=== PATIENT | female | born 1985 | race Caucasian/White ===

== ENCOUNTER → 2016-10-28 | Outpatient (CLI) | payer MEDICAID ==
[~2016-10-28] MED LIST: CALC600T5 PO; FERR325C PO; IBUP-1542 PO; PREN1TAB62 PO
--- NOTE | 2016-10-28 14:35 | RADRPT ---
PROCEDURE: OB Ultrasound. CLINICAL INDICATION: Positive test. Uncertain size and dates. TECHNIQUE: Ultrasound of the pelvis was performed with transabdominal sonography in the axial and sagittal planes. COMPARISON: No prior study is available for comparison. FINDINGS: There is a single intrauterine gestational sac. pole and yolk sac are present. There is heart motion. heart rate is 176 beats per minute. [place]-rump length is 0.86 cm. Mean sac diameter is 2.22 cm. There is a small subchorionic hemorrhage. Menstrual age by ultrasound dates is 7 weeks 0 days. This indicates an expected date of delivery of 06/16/2017. The right ovary measures 3.3 x 1.6 x 2.7 cm. The left ovary is not visualized. Color Doppler and pulsed Doppler sonography demonstrate normal flow to the right ovary. There is no right ovarian enlargement or mass. There is no other pelvic mass or free fluid. IMPRESSION: 1. Single live intrauterine gestation of 7 weeks 0 days menstrual age by ultrasound dates. 2. Expected date of delivery is 06/16/2017. 3. Small subchorionic hemorrhage. RPTAT: QQ .Alfa Bishop MD, Date Time Electronically viewed and signed by .Alfa Bishop MD, on 10/28/2016 14:35 .R/
== END | disposition home or self-care (01) ==
LOC: U/S 09:08
PROVIDERS: ATTEND Psychiatry & Neurology Psychiatry
DX: O26.841 Uterine size-date discrepancy, first trimester (principal); Z3A.00 Weeks of gestation of pregnancy not specified
CPT/HCPCS: 76801

== ENCOUNTER 2016-11-08 09:50 | Emergency (ER) | payer MEDICAID ==
[~2016-11-08] VITALS: Wt 71.0 kg
--- NOTE | 2016-11-08 10:50 | ERD ---
ER Documentation Chief Complaint Date/Time DATE: 11/08/16 TIME: 10:48 Chief Complaint lower abd cramping with vag bleed since last night. no dysuria per pt HPI 31 year old female comes in with lower pelvic cramping and vaginal bleeding that started last night, patient is currently approximately 8 weeks with last menstrual period on August 28, 2016, A0. Last night she started to have heavy amount of vaginal bleeding with lower pelvic cramping that went to her back, she continues to have light spotting at this time. She denies fevers or chills or dizziness. ROS All systems reviewed and are negative except as per history of present illness. Medications Home Meds Active Scripts Ibuprofen* (Ibuprofen*) 600 Mg Tab, 600 MG PO Q6, #20 TAB 0 Refills Prov:SIMON HICKMAN MD 10/19/15 Reported Medications Calcium Carbonate (CALCIUM) 600 Mg Tablet, 600 MG PO, TAB 10/18/15 Ferrous Sulfate (Iron) 325 Mg Capsr, 325 MG PO 10/18/15 Vit-Iron Fumarate-FA ( Vitamin Tablet) 1 Each Tablet, 1 TAB PO DAILY, TAB 10/18/15 Allergies Allergies: Coded Allergies: No Known Drug Allergy (Verified Allergy, Unknown, 10/18/15) PMhx/Soc Medical and Surgical Hx: pt denies Medical Hx, pt denies Surgical Hx History of Surgery: No Anesthesia Reaction: No Hx Neurological Disorder: No Hx Respiratory Disorders: No Hx Cardiac Disorders: No Hx Psychiatric Problems: No Hx Miscellaneous Medical Probl: No Hx Alcohol Use: No Hx Substance Use: No Hx Tobacco Use: No Smoking Status: Never smoker Physical Exam Vitals Vital Signs Date Time Temp Pulse Resp B/P Pulse Ox O2 Delivery O2 Flow Rate FiO2 11/08/16 09:59 98.8 71 20 107/58 99 Physical Exam General: Well-developed, well-nourished. The patient appears in no acute distress. HEENT: Head is normocephalic, atraumatic. No scleral icterus. Neck: Supple. Nontender. Lungs: Clear to auscultation. Normal air movement. Heart: Regular rate and rhythm. S1 and S2 are normal. No murmurs, gallops, or rubs. Abdomen: Soft, nontender, nondistended. Bowel sounds are normoactive. Extremities: No clubbing or cyanosis. Normal pulses. Moving extremities x 4. No weakness. Neurologic: Alert and oriented 3. No focal deficits. Skin: Normal turgor. No rash or lesions. Result Diagram: 11/08/16 1100 Results 24 hrs PROCEDURE: OBSTETRICAL ULTRASOUND WITH ENDOVAGINAL IMAGES CLINICAL INDICATION: Vaginal Bleed () TECHNIQUE: Multiple sonographic images of the pelvis were obtained utilizing a transabdominal and endovaginal technique. The images were reviewed on a PACS workstation. COMPARISON: Obstetrical ultrasound from 10/28/2016 LMP: 08/18/2016 FINDINGS: There is a 2.6 cm posterior subserosal uterine fibroid at the level of the mid body. There is a posterior 1.4 mm intramural uterine fibroid at the level of the upper body. There is a single live intrauterine with heart rate of 167 beats per minute, yolk sac, mean sac diameter of 3.60 cm, and crown-rump length of 2.27 cm which is consistent with a gestational age of 9 weeks, 0 days . The estimated date of delivery by ultrasound is 06/13/2017 . The estimated gestational age by LMP is 11 weeks, 5 days . The estimated date of delivery by LMP is 05/25/2017 . The right ovary measures 3.8 x 2.2 x 2.7 cm. The left ovary is not visualized. There is normal vascular flow in the right ovary There is a 2.1 cm thick-walled cystic lesion with low level internal echoes in the right ovary which is likely a hemorrhagic or corpus luteal cyst. No significant pelvic free fluid is identified. IMPRESSION: Single live intrauterine consistent with a gestational age of 9 weeks , 0 days . The estimated date of delivery is 06/13/2017 . Dating by ultrasound is within 2 weeks and 5 days of dating by LMP. 2 uterine fibroids measuring up to 2.6 cm. 2.1 cm complex cystic lesion in the right ovary is likely a hemorrhagic or corpus luteal cyst. Nonvisualization of the left ovary. RPTAT: EE Physician Eva Date Time Electronically viewed and signed by Physician Eva on 11/08/2016 11:53 Laboratory Tests Test 2/6/17 10:55 11/08/16 11:00 Urine Bacteria FEW Urine Bilirubin NEGATIVE Urine Clarity CLEAR Urine Color YELLOW Urine Glucose NEGATIVE% Urine Hemoglobin TRACE Urine Ketones TRACE Urine Leukocyte Esterase NEGATIVE Urine Microscopic RBC NONE SEEN/HPF Urine Microscopic WBC 2-5/HPF Urine Nitrite NEGATIVE Urine Specific Newman >=1.030 Urine Squamous Epithelial Cells FEW Urine Total Protein NEGATIVE Urine Urobilinogen 1.0 E.U./dL Urine pH 5.5 Basophils # 0.010^3/ul Basophils % 0.4% Beta HCG, Quantitative 054279.0mIU/ml Eosinophils # 0.210^3/ul Eosinophils % 2.0% Hematocrit 38.6% Hemoglobin 13.3g/dl Lymphocytes # 2.010^3/ul Lymphocytes % 22.4% Mean Corpuscular Hemoglobin 30.8pg Mean Corpuscular Hemoglobin Concent 34.3g/dl Mean Corpuscular Volume 89.8fl Mean Platelet Volume 8.1fl Monocytes # 0.410^3/ul Monocytes % 5.0% Neutrophils # 6.110^3/ul Neutrophils % 70.2% Nucleated Red Blood Cells # 0.010^3/ul Nucleated Red Blood Cells % 0.0/100WBC Platelet Count 63369^3/UL Red Blood Count 4.3010^6/ul Red Cell Distribution Width 12.5% White Blood Count 8.810^3/ul Procedures/MDM 31-year-old female comes in with vaginal bleeding, has a single live intrauterine seen on ultrasound today. Patient differentials include creatinine, versus missed versus incomplete . No evidence of ectopic . She is type and Rh+, no indication of RhoGam. As patient is follow- up with her [employer] in the next 2-4 days for reexamination. Departure Diagnosis: Primary Impression: Vaginal bleeding Condition: Good ILANA ABDULLAHI PA-C Nov 08, 2016 10:50
[2016-11-08 11:09] LABS: ADD UMIC YES; URINE BILIRUBIN (Dip) NEGATIVE (NEGATIVE); URINE BLOOD (Dip) TRACE (NEGATIVE); URINE COLOR YELLOW (YELLOW); URINE GLUCOSE (Dip) NEGATIVE (NEGATIVE); URINE KETONES (Dip) TRACE (NEGATIVE); URINE LEUKOCYTE ESTERASE (Dip) NEGATIVE (NEGATIVE); URINE NITRITE (Dip) NEGATIVE (NEGATIVE); URINE TOTAL PROTEIN (Dip) NEGATIVE (NEGATIVE); URINE UROBILINOGEN (Dip) 1.0 E.U./dL (0.1-1.0)
[2016-11-08 11:10] LABS: BASOPHILS % 0.4 % (0.0-2.0); EOSINOPHILS # 0.2 10^3/ul (0.0-0.5); HEMATOCRIT 38.6 % (37.0-47.0); HEMOGLOBIN 13.3 g/dl (12.0-16.0); LYMPHOCYTES % 22.4 % (15.0-51.0); MEAN CORPUSCULAR HEMOGLOBIN 30.8 pg (29.0-33.0); MEAN CORPUSCULAR HGB CONC 34.3 g/dl (32.0-37.0); MEAN CORPUSCULAR VOLUME 89.8 fl (82.0-101.0); MEAN PLATELET VOLUME 8.1 fl (7.4-10.4); MONOCYTE # 0.4 10^3/ul (0.3-0.9); NEUTROPHIL # 6.1 10^3/ul (1.6-7.5); NEUTROPHILS % 70.2 % (39.0-77.0); PLATELET COUNT 350 10^3/UL (140-440); RED CELL DISTRIBUTION WIDTH 12.5 % (11.5-14.5); UNCORRECTED WBC 8.8 10^3/ul (4.8-10.8); WHITE BLOOD COUNT 8.8 10^3/ul (4.8-10.8)
[2016-11-08 11:20] LABS: CONDITION 1
--- NOTE | 2016-11-08 11:53 | RADRPT ---
PROCEDURE: OBSTETRICAL ULTRASOUND WITH ENDOVAGINAL IMAGES CLINICAL INDICATION: Vaginal Bleed () TECHNIQUE: Multiple sonographic images of the pelvis were obtained utilizing a transabdominal and endovaginal technique. The images were reviewed on a PACS workstation. COMPARISON: Obstetrical ultrasound from 10/28/2016 LMP: 08/18/2016 FINDINGS: There is a 2.6 cm posterior subserosal uterine fibroid at the level of the mid body. There is a posterior 1.4 mm intramural uterine fibroid at the level of the upper body. There is a single live intrauterine with heart rate of 167 beats per minute, yolk sa c, mean sac diameter of 3.60 cm, and crown-rump length of 2.27 cm which is consistent with a gestati onal age of 9 weeks, 0 days . The estimated date of delivery by ultrasound is 06/13/2017 . The estimated gestational age by LMP is 11 weeks, 5 days . The estimated date of delivery by LMP is 05/25/2017 . The right ovary measures 3.8 x 2.2 x 2.7 cm. The left ovary is not visualized. There is normal vascu lar flow in the right ovary There is a 2.1 cm thick-walled cystic lesion with low level internal echoes in the right ovary which is likely a hemorrhagic or corpus luteal cyst. No significant pelvic free fluid is identified. IMPRESSION: Single live intrauterine consistent with a gestational age of 9 weeks, 0 days . The estimated date of delivery is 06/13/2017 . Dating by ultrasound is within 2 weeks and 5 days of dating by LMP. 2 uterine fibroids measuring up to 2.6 cm. 2.1 cm complex cystic lesion in the right ovary is likely a hemorrhagic or corpus luteal cyst. Nonvisualization of the left ovary. RPTAT: EE Physician Eva Date Time Electronically viewed and signed by Anival Bird Physician on 11/08/2016 11:53 /
[2016-11-08 12:29] LABS: BACTERIA,URINE FEW; SQUAMOUS EPITHELIAL CELL,UR FEW; URINE RBCS NONE SEEN /HPF (0)
[2016-11-08 12:52] VITALS: BP 125/62; PULSE 65; RESP 18; TEMP 98.8
== END 2016-11-08 12:45 | disposition home or self-care (01) ==
LOC: FTE 09:50
DX: O20.9 Hemorrhage in early pregnancy, unspecified (principal); R10.2 Pelvic and perineal pain; Z3A.09 9 weeks gestation of pregnancy
CPT/HCPCS: 36415; 76801; 76817; 81001; 84702; 85025; 86900; 86901; Z7502; 81003

== ENCOUNTER 2017-01-05 15:10 | Emergency (ER) | payer MEDICAID ==
[~2017-01-05] VITALS: Ht 160 cm; Wt 75.0 kg
[2017-01-05 15:20] VITALS: Ht 160 cm; Wt 75.0 kg
[2017-01-05] MEDS ORDERED: ACETAMINOPHEN 500 MG TAB PO STA (17:10)
--- NOTE | 2017-01-05 17:20 | ERD ---
ER Documentation Chief Complaint Date/Time DATE: 01/05/17 TIME: 17:17 Chief Complaint LEFT TOE NAIL INJURY NAIL COMING OFF HPI This a 31-year-old female who presents to the emergency department today complaining of left great toe pain and that her toenail coming off after kicking a door at the school earlier today. Patient was wearing flip-flops. Denies any previous trauma. States she is 4 months . States has not taken medication for the pain. ROS All systems reviewed and are negative except as per history of present illness. Medications Home Meds Active Scripts Acetaminophen* (Tylophen*) 500 Mg Capsule, 1 CAP PO Q6H Y for PAIN AND OR ELEVATED TEMP, #30 CAP Prov:JUAN KAUR PA-C 01/05/17 Ibuprofen* (Ibuprofen*) 600 Mg Tab, 600 MG PO Q6, #20 TAB 0 Refills Prov:SIMON HICKMAN MD 10/19/15 Reported Medications Calcium Carbonate (CALCIUM) 600 Mg Tablet, 600 MG PO, TAB 10/18/15 Ferrous Sulfate (Iron) 325 Mg Capsr, 325 MG PO 10/18/15 Vit-Iron Fumarate-FA ( Vitamin Tablet) 1 Each Tablet, 1 TAB PO DAILY, TAB 10/18/15 Allergies Allergies: Coded Allergies: No Known Drug Allergy (Verified Allergy, Unknown, 10/18/15) PMhx/Soc History of Surgery: No Anesthesia Reaction: No Hx Neurological Disorder: No Hx Respiratory Disorders: No Hx Cardiac Disorders: No Hx Psychiatric Problems: No Hx Miscellaneous Medical Probl: No Hx Alcohol Use: No Hx Substance Use: No Hx Tobacco Use: No Physical Exam Vitals Vital Signs Date Time Temp Pulse Resp B/P Pulse Ox O2 Delivery O2 Flow Rate FiO2 01/05/17 15:20 97.7 83 18 101/59 99 Physical Exam Const: No acute distress Head: Atraumatic Eyes: Normal Conjunctiva ENT: Normal External Ears, Nose and Mouth. Neck: Full range of motion..~ No meningismus. Resp: Clear to auscultation bilaterally Cardio: Regular rate and rhythm, no murmurs Skin: No petechiae or rashes MSK: Left great toe with toenail avulsion. Tenderness to palpation great toe. Good pedal pulses. Neur: Awake and alert Psych: Normal Mood and Affect Results 24 hrs Current Medications Medications (Trade) Dose Ordered Sig/Kesha Route PRN Reason Start Time Stop Time Status Last Admin Dose Admin Acetaminophen (Tylenol Tab) 500 mg ONCE STAT PO 01/05/17 17:10 01/05/17 17:13 DC 01/05/17 17:17 Lidocaine (Xylocaine 1% (Mdv) 20 ml) 20 ml ONCE ONCE SC 01/05/17 17:30 01/05/17 17:31 DC DIAGNOSTIC IMAGING REPORT Patient: LILIYA XAVIRE : 1985 Age: 31 Sex: F MR #: [id number] DOS: 01/05/17 0000 Ordering MD: JUAN KAUR PA-C Location: [facility] Room/Bed: PROCEDURE: XR Left First Toe. CLINICAL INDICATION: Trauma. Left first toe pain. TECHNIQUE: Three views of the left first toe are available for review COMPARISON: No prior studies are available for comparison. FINDINGS: There is no fracture or dislocation. There is avulsion of the toenail. The soft tissues are otherwise normal. Articular surfaces are intact. There is no lytic or blastic lesion. There is no radiopaque foreign body. IMPRESSION: 1. Avulsion of the canal. 2. Otherwise unremarkable images of the left first toe. RPTAT: QQ .Alfa Bishop MD, Date Time Electronically viewed and signed by .Alfa Bishop MD, on 01/05/2017 17:55 .R/ CC: JUAN KAUR PA-C Procedures/MDM This a 31-year-old female who presents to the emergency department today for for left toenail injury. On physical exam patient has an almost complete great toenail partial avulsion. Patient is 4 months . I discussed the patient with Dr. Delgadillo who recommended that the nail be placed back down to the nailbed is closed as possible. I did use local lidocaine to help with the pain while placing the toenail back down. Area was prepped in the usual sterile fashion. Patient tolerated the procedure well and there were no complications. I did obtain images. Digital block Anesthesia: 1% lidocaine locally 3 cc Location: L great toe Tendon/Joint/Nerves: No injury Foreign body: None detected after copious irrigation and exploration Patient's bleeding was easily controlled in the department and there is no indication of anemia. No evidence of compartment syndrome, neurologic injury, vascular injury, open joint, tendon laceration, or foreign body. Patient is appropriate for outpatient follow up. Per the radiology report images of the left great toe show an avulsion of the canal of the toenail. Soft tissues are otherwise normal. There is no fracture dislocation. Patient symptoms at this time is consistent with partial great toe toenail avulsion Patient was given Tylenol here in the emergency department. I will give her a prescription for Tylenol for home. We will also give her a list of podiatry referral. As well as an ortho shoe. Patient declined crutches to help ambulate. At this time the patient is stable for discharge and outpatient management. Patient should follow up with their PCP in the next 1-2 days. They may return to the emergency department sooner for any persistent or worsening of symptoms. Patient understood and agreed with the plan. Dr Delgadillo has seen and evaluated the patient and he is in agreement with the plan. Departure Diagnosis: Primary Impression: Nail avulsion Encounter type: initial encounter Qualified Code: S61.309A - Nail avulsion, initial encounter Condition: JUAN Gerber PA-C Jan 05, 2017 17:20
[2017-01-05] MEDS ORDERED: LIDOCAINE 1% (MDV) 20 ML INJ SC ONE (17:30)
--- NOTE | 2017-01-05 17:56 | RADRPT ---
PROCEDURE: XR Left First Toe. CLINICAL INDICATION: Trauma. Left first toe pain. TECHNIQUE: Three views of the left first toe are available for review COMPARISON: No prior studies are available for comparison. FINDINGS: There is no fracture or dislocation. There is avulsion of the toenail. The soft tissues are otherwise normal. Articular surfaces are intact. There is no lytic or blastic lesion. There is no radiopaque foreign body. IMPRESSION: 1. Avulsion of the canal. 2. Otherwise unremarkable images of the left first toe. RPTAT: QQ .Alfa Bishop MD, Date Time Electronically viewed and signed by .Alfa Bishop MD, on 01/05/2017 17:55 .R/
[2017-01-05] MEDS ORDERED: ACET500C5 PO (18:03)
[2017-01-05 18:11] VITALS: TEMP 98.2
== END 2017-01-05 18:12 | disposition home or self-care (01) ==
LOC: FTE 15:10
DX: O9A.212 Injury, poisoning and certain other consequences of external causes complicating pregnancy, second trimester (principal); S91.202A Unspecified open wound of left great toe with damage to nail, initial encounter; W22.8XXA Striking against or struck by other objects, initial encounter; Y92.219 Unspecified school as the place of occurrence of the external cause; Z3A.00 Weeks of gestation of pregnancy not specified
CPT/HCPCS: 11760; 73660; Z7502; Z7610

== ENCOUNTER 2017-10-20 19:21 | Emergency (ER) | END 2017-10-21 02:46 | disposition home or self-care (01) ==

== ENCOUNTER 2017-10-28 15:52 | Emergency (ER) | END 2017-10-28 21:38 | disposition home or self-care (01) ==

== ENCOUNTER 2017-11-12 22:35 | Emergency (ER) | END 2017-11-13 03:24 | disposition home or self-care (01) ==

== ENCOUNTER 2018-02-21 05:50 | Inpatient (IN) | END 2018-02-27 12:30 | disposition home or self-care (01) | DRG 765 ==